=== PATIENT | male | born 1975 | race Caucasian/White ===

== ENCOUNTER 2017-05-15 21:06 | Emergency (ER) | payer MEDICAID ==
[~2017-05-15] VITALS: Ht 172.7 cm; Wt 61.0 kg
[2017-05-16] MEDS ORDERED: PENICILLIN G BENZATHINE 1,200,000 UNITS/2ML SYR IM ONE (03:15)
[2017-05-16 04:55] VITALS: BP 108/73
== END 2017-05-16 05:48 | disposition home or self-care (01) ==
LOC: ER 21:06
DX: J02.9 Acute pharyngitis, unspecified (principal); I11.9 Hypertensive heart disease without heart failure; F17.210 Nicotine dependence, cigarettes, uncomplicated; G43.909 Migraine, unspecified, not intractable, without status migrainosus
CPT/HCPCS: 96372; 99283; J0561; Z7610

== ENCOUNTER 2018-12-14 22:16 | Emergency (ER) | payer MEDICAID ==
[~2018-12-14] VITALS: Ht 172.7 cm; Wt 89.0 kg
[2018-12-15 01:46] LABS: BASOPHILS % 0.5 % (0.0-2.0); HEMATOCRIT. 44.9 % (42.0-52.0); MEAN CORPUSCULAR HEMOGLOBIN 30.2 pg (28.0-32.0); MEAN CORPUSCULAR VOLUME 90.3 fL (80.0-94.0); MEAN PLATELET VOLUME 7.9 fl (7.4-10.4); MONOCYTES % 6.7 % (2.0-8.0); NEUTROPHILS % 50.8 % (40.0-76.0); PLATELET 228 x1000/uL (130-400); RED BLOOD CELL COUNT 4.97 mill/uL (4.7-6.1); RED CELL DISTRIBUTION WIDTH 13.4 % (11.6-14.6)
[2018-12-15 01:52] LABS: CHLORIDE 106 mEq/L (98-107)
[2018-12-15 04:11] VITALS: BP 105/57
== END 2018-12-15 04:48 | disposition home or self-care (01) ==
LOC: ER 22:16
DX: I10 Essential (primary) hypertension (principal); R07.89 Other chest pain; I49.9 Cardiac arrhythmia, unspecified
CPT/HCPCS: 36415; 71045; 83880; 84484; 93005; 99284

== ENCOUNTER 2019-11-11 08:50 | Emergency (ER) | payer MEDICAID ==
[~2019-11-11] VITALS: Ht 175.3 cm; Wt 86.0 kg
[2019-11-11] MEDS ORDERED: ACETAMINOPHEN 500MG TABLET PO ONE (11:00)
[2019-11-11 11:10] LABS: BASOPHILS % 0.5 % (0.0-2.0); EOSINOPHILS % 0.1 % (0.0-5.0); HEMATOCRIT. 48.2 % (42.0-52.0); HEMOGLOBIN. 16.2 g/dL (14.0-18.0); LYMPHOCYTES % 17.6 % (20.0-50.0); MEAN CORPUSCULAR HEMOGLOBIN 30.2 pg (28.0-32.0); MEAN PLATELET VOLUME 7.9 fl (7.4-10.4); MONOCYTES % 10.3 % (2.0-8.0); NEUTROPHILS % 71.5 % (40.0-76.0); PLATELET 198 x1000/uL (130-400); RED BLOOD CELL COUNT 5.36 mill/uL (4.7-6.1); RED CELL DISTRIBUTION WIDTH 12.6 % (11.6-14.6)
[2019-11-11 11:17] LABS: CHLORIDE 104 mEq/L (98-107)
[2019-11-11 12:56] VITALS: BP 129/75
== END 2019-11-11 13:40 | disposition home or self-care (01) ==
LOC: ER 08:50
DX: B34.9 Viral infection, unspecified (principal); R07.89 Other chest pain; I48.91 Unspecified atrial fibrillation; I10 Essential (primary) hypertension; I49.9 Cardiac arrhythmia, unspecified; Z86.73 Personal history of transient ischemic attack (TIA), and cerebral infarction without residual deficits
CPT/HCPCS: 36415; 71045; 80053; 83880; 84484; 85025; 87804; 93005; 99284

== ENCOUNTER 2020-03-12 23:58 | Emergency (ER) | payer MEDICAID ==
[~2020-03-12] VITALS: Ht 172.7 cm; Wt 88.0 kg
[2020-03-13 01:48] LABS: BASOPHILS % 0.4 % (0.0-2.0); EOSINOPHILS % 1.8 % (0.0-5.0); HEMATOCRIT. 50.3 % (42.0-52.0); HEMOGLOBIN. 17.4 g/dL (14.0-18.0); LYMPHOCYTES % 32.7 % (20.0-50.0); MEAN CORPUSCULAR HEMOGLOBIN 31.6 pg (28.0-32.0); MEAN CORPUSCULAR VOLUME 91.1 fL (80.0-94.0); MEAN PLATELET VOLUME 7.7 fl (7.4-10.4); MONOCYTES % 7.6 % (2.0-8.0); NEUTROPHILS % 57.5 % (40.0-76.0); PLATELET 245 x1000/uL (130-400); RED BLOOD CELL COUNT 5.52 mill/uL (4.7-6.1); RED CELL DISTRIBUTION WIDTH 13.2 % (11.6-14.6)
[2020-03-13 01:55] LABS: CHLORIDE 102 mEq/L (98-107)
[2020-03-13 06:32] VITALS: BP 138/78
== END 2020-03-13 06:39 | disposition home or self-care (01) ==
LOC: ER 23:58
DX: R00.2 Palpitations (principal); I10 Essential (primary) hypertension; Z86.73 Personal history of transient ischemic attack (TIA), and cerebral infarction without residual deficits
CPT/HCPCS: 36415; 71045; 80053; 83880; 84484; 85025; 93005; 99285

== ENCOUNTER 2020-05-27 08:25 | Inpatient (IN) | payer MEDICAID, OTHER ==
[~2020-05-27] VITALS: Ht 175.3 cm; Wt 85.7 kg
[2020-05-27] MEDS ORDERED: ASPIRIN 81MG TABLET PO ONE (10:00)
[2020-05-27 10:23] LABS: CHLORIDE 101 mEq/L (98-107)
[2020-05-27 10:25] LABS: BASOPHILS % 0.5 % (0.0-2.0); EOSINOPHILS % 2.5 % (0.0-5.0); HEMATOCRIT. 49.7 % (42.0-52.0); HEMOGLOBIN. 16.6 g/dL (14.0-18.0); LYMPHOCYTES % 37.2 % (20.0-50.0); MEAN CORPUSCULAR HEMOGLOBIN 30.3 pg (28.0-32.0); MEAN CORPUSCULAR VOLUME 90.5 fL (80.0-94.0); MEAN PLATELET VOLUME 8.6 fl (7.4-10.4); MONOCYTES % 8.1 % (2.0-8.0); NEUTROPHILS % 51.7 % (40.0-76.0); PLATELET 251 x1000/uL (130-400); RED BLOOD CELL COUNT 5.49 mill/uL (4.7-6.1); RED CELL DISTRIBUTION WIDTH 12.8 % (11.6-14.6)
[2020-05-27] MEDS ORDERED: POTASSIUM CHLORIDE 20MEQ TABLET SR PO NR (12:30)
[2020-05-27] MEDS ORDERED: ACETAMINOPHEN 325MG TABLET PO PRN (12:30)
[2020-05-27] MEDS ORDERED: ONDANSETRON HCL 4MG/2ML INJ IV PRN (12:30)
[2020-05-27] MEDS ORDERED: HYDRALAZINE 20MG/ML VIAL IV PRN (12:30)
[2020-05-27] MEDS ORDERED: RIVAROXABAN 20 MG TABLET PO SCH (17:00)
[2020-05-27] MEDS ORDERED: REGADENOSON 0.4 MG/5 ML IV NR (17:30)
[2020-05-27 17:40] VITALS: BP 114/73
[2020-05-27 18:00] VITALS: BP 117/68
[2020-05-27 19:43] LABS: CLARITY URINE CLEAR (CLEAR); COLOR URINE YELLOW (YELLOW); KETONES URINE 1+ (NEGATIVE); LEUKOCYTE ESTERASE URINE NEGATIVE (NEGATIVE); NITRITE URINE NEGATIVE (NEGATIVE); OCCULT BLOOD URINE NEGATIVE (NEGATIVE); PROTEIN URINE NEGATIVE (NEGATIVE); SPECIFIC GRAVITY URINE 1.014 (1.005-1.030)
[2020-05-27 20:00] VITALS: BP 114/66
[2020-05-27 20:07] LABS: *AMPHETAMINES SCREEN URINE NEGATIVE (NEGATIVE); *BARBITURATES SCREEN URINE NEGATIVE (NEGATIVE)
[2020-05-27 20:09] LABS: *BENZODIAZEPINES SCREEN URINE NEGATIVE (NEGATIVE); *COCAINE SCREEN URINE NEGATIVE (NEGATIVE); CANNABINOID URINE SCREEN NEGATIVE (NEGATIVE); METHADONE URINE SCREEN NEGATIVE (NEGATIVE); OPIATES URINE SCREEN NEGATIVE (NEGATIVE); PHENCYCLIDINE URINE SCREEN NEGATIVE (NEGATIVE)
[2020-05-27 21:00] VITALS: BP 118/69
[2020-05-27] MEDS ORDERED: TRAZODONE HCL 50MG TABLET PO PRN (21:00)
[2020-05-27] MEDS ORDERED: HEPARIN 5000 UNITS/ML VIAL SUBCUT SCH (21:00)
[2020-05-27 22:00] VITALS: BP 117/60
[2020-05-27 23:00] VITALS: BP 105/60
[2020-05-28] VITALS (14 sets, daily range): BP systolic 87–116; BP diastolic 54–75
[2020-05-28 06:47] LABS: CHLORIDE 106 mEq/L (98-107)
[2020-05-28 06:48] LABS: BASOPHILS % 0.5 % (0.0-2.0); EOSINOPHILS % 4.6 % (0.0-5.0); HEMATOCRIT. 49.4 % (42.0-52.0); HEMOGLOBIN. 16.7 g/dL (14.0-18.0); LYMPHOCYTES % 40.6 % (20.0-50.0); MEAN CORPUSCULAR HEMOGLOBIN 30.7 pg (28.0-32.0); MEAN CORPUSCULAR VOLUME 90.6 fL (80.0-94.0); MEAN PLATELET VOLUME 8.3 fl (7.4-10.4); MONOCYTES % 7.1 % (2.0-8.0); NEUTROPHILS % 47.2 % (40.0-76.0); PLATELET 223 x1000/uL (130-400); RED BLOOD CELL COUNT 5.45 mill/uL (4.7-6.1); RED CELL DISTRIBUTION WIDTH 12.8 % (11.6-14.6)
[2020-05-28 06:57] LABS: LDL CHOLESTEROL 113 mg/dL (5-100)
[2020-05-28 06:58] LABS: T4 FREE 1.36 ng/dL (0.76-1.46)
[2020-05-28 06:59] LABS: HDL CHOLESTEROL 40 mg/dL (40-59)
[2020-05-28] MEDS ORDERED: LOSA50TA41 PO (07:25)
[2020-05-28] MEDS ORDERED: CHLO25TA2 PO (07:25)
[2020-05-28] MEDS ORDERED: RIVA20TA PO (07:25)
[2020-05-28] MEDS ORDERED: REGADENOSON 0.4 MG/5 ML IV ONE (09:45)
[2020-05-28] MEDS ORDERED: CARVEDILOL 3.125 MG TABLET PO SCH (13:15)
[2020-05-28] MEDS: DILTIAZEM HCL 30MG TABLET PO SCH ×2 (13:49→18:58)
[2020-05-28] MEDS ORDERED: RIVAROXABAN 20 MG TABLET PO SCH (17:20)
[2020-05-29] VITALS (12 sets, daily range): BP systolic 93–122; BP diastolic 61–81
[2020-05-29] MEDS: DILTIAZEM HCL 30MG TABLET PO SCH ×3 (06:00→11:59)
[2020-05-29 06:56] LABS: CHLORIDE 106 mEq/L (98-107)
[2020-05-29 07:23] LABS: BASOPHILS % 0.7 % (0.0-2.0); EOSINOPHILS % 3.9 % (0.0-5.0); HEMATOCRIT. 46.2 % (42.0-52.0); HEMOGLOBIN. 15.6 g/dL (14.0-18.0); LYMPHOCYTES % 44.2 % (20.0-50.0); MEAN CORPUSCULAR HEMOGLOBIN 30.6 pg (28.0-32.0); MEAN CORPUSCULAR VOLUME 90.9 fL (80.0-94.0); MEAN PLATELET VOLUME 8.4 fl (7.4-10.4); MONOCYTES % 6.8 % (2.0-8.0); NEUTROPHILS % 44.4 % (40.0-76.0); PLATELET 218 x1000/uL (130-400); RED BLOOD CELL COUNT 5.09 mill/uL (4.7-6.1); RED CELL DISTRIBUTION WIDTH 12.9 % (11.6-14.6)
[2020-05-29] MEDS ORDERED: POTASSIUM CHLORIDE 20MEQ TABLET SR PO NR (11:45)
[2020-05-30] VITALS (11 sets, daily range): BP systolic 96–134; BP diastolic 60–76
[2020-05-30 06:20] LABS: BASOPHILS % 0.6 % (0.0-2.0); HEMATOCRIT. 44.8 % (42.0-52.0); LYMPHOCYTES % 46.9 % (20.0-50.0); MEAN CORPUSCULAR HEMOGLOBIN 30.6 pg (28.0-32.0); MEAN CORPUSCULAR VOLUME 91.2 fL (80.0-94.0); MEAN PLATELET VOLUME 8.5 fl (7.4-10.4); MONOCYTES % 6.8 % (2.0-8.0); NEUTROPHILS % 41.7 % (40.0-76.0); PLATELET 199 x1000/uL (130-400); RED BLOOD CELL COUNT 4.91 mill/uL (4.7-6.1); RED CELL DISTRIBUTION WIDTH 12.8 % (11.6-14.6)
[2020-05-30 06:30] LABS: CHLORIDE 106 mEq/L (98-107)
[2020-05-30] MEDS ORDERED: ENOXAPARIN 80MG/0.8ML SYR SUBCUT NR (12:00)
[2020-05-30] MEDS ORDERED: POTASSIUM CHLORIDE 20MEQ TABLET SR PO NR (13:15)
[2020-05-31] VITALS (10 sets, daily range): BP systolic 96–113; BP diastolic 52–76
[2020-05-31 09:03] LABS: BASOPHILS % 0.5 % (0.0-2.0); EOSINOPHILS % 2.9 % (0.0-5.0); HEMATOCRIT. 46.1 % (42.0-52.0); HEMOGLOBIN. 15.5 g/dL (14.0-18.0); LYMPHOCYTES % 41.2 % (20.0-50.0); MEAN CORPUSCULAR HEMOGLOBIN 30.5 pg (28.0-32.0); MEAN CORPUSCULAR VOLUME 90.8 fL (80.0-94.0); MONOCYTES % 7.4 % (2.0-8.0); PLATELET 193 x1000/uL (130-400); RED BLOOD CELL COUNT 5.07 mill/uL (4.7-6.1); RED CELL DISTRIBUTION WIDTH 12.5 % (11.6-14.6)
[2020-05-31 09:09] LABS: CHLORIDE 109 mEq/L (98-107)
[2020-05-31] MEDS ORDERED: SODIUM CHLORIDE 0.9% 1,000 ML IV ONE (10:00)
[2020-05-31] MEDS ORDERED: LIDOCAINE HCL 1% 20ML VIAL (Pyxis) INJ ONE ×2 (10:13→11:26)
[2020-05-31] MEDS ORDERED: ONDANSETRON HCL 4MG/2ML INJ IV PRN (10:15)
[2020-05-31] MEDS ORDERED: MORPHINE SULFATE 2 MG/ML CPJ (NOT FOR IM USE) IV PRN (10:15)
[2020-05-31] MEDS ORDERED: MEPERIDINE HCL/PF 25MG/ML CPJ IV PRN ×2 (10:15)
[2020-05-31] MEDS ORDERED: HYDROMORPHONE HCL/PF 2MG/ML CPJ IV PRN (10:15)
[2020-05-31] MEDS ORDERED: IOHEXOL-300 50 ML BOTTLE IV ONE (10:34)
[2020-05-31] MEDS ORDERED: MIDAZOLAM HCL 2 MG/2 ML VIAL ONE ×2 (10:41→10:47)
[2020-05-31] MEDS ORDERED: FENTANYL CITRATE/PF 50MCG/ML 2ML VIAL ONE (10:41)
[2020-05-31] MEDS ORDERED: PROPOFOL 200MG/20ML VIAL IV ONE (10:41)
[2020-05-31] MEDS ORDERED: METOCLOPRAMIDE HCL 10MG/2ML VIAL ONE (10:42)
[2020-05-31] MEDS ORDERED: ONDANSETRON HCL 4MG/2ML INJ ONE (10:42)
[2020-05-31] MEDS ORDERED: SUCCINYLCHOLINE CHLORIDE 200MG/10ML IV ONE (10:42)
[2020-05-31] MEDS ORDERED: GLYCOPYRROLATE 0.2 MG/ML 2ML VIAL ONE (10:42)
[2020-05-31] MEDS ORDERED: PROPOFOL 10MG/ML 100ML 100 ML IV ONE (10:44)
[2020-05-31] MEDS ORDERED: HEPARIN 5000 UNITS/ML VIAL ONE (11:18)
[2020-05-31] MEDS ORDERED: THROMBIN (BOVINE) 5000 UNITS/VIAL TOP ONE (11:18)
[2020-05-31] MEDS ORDERED: HEPARIN SODIUM 1,000 UNIT/1ML VIAL IV ONE (11:19)
[2020-05-31] MEDS ORDERED: SKIN ADHESIVE 0.7 GM EA TOP ONE (11:37)
[2020-05-31] MEDS ORDERED: GENTAMICIN SULF 40MG/ML 2ML VIAL ONE (11:53)
[2020-05-31] MEDS ORDERED: HYDROCODONE/ACETAMINOPHEN 5/325MG TABLET PO PRN (12:15)
[2020-06-01] VITALS (7 sets, daily range): BP systolic 94–133; BP diastolic 59–80
[2020-06-01] MEDS: DILTIAZEM HCL 30MG TABLET PO SCH ×2 (00:14→06:00)
[2020-06-01 08:13] LABS: BASOPHILS % 1.1 % (0.0-2.0); EOSINOPHILS % 2.7 % (0.0-5.0); HEMATOCRIT. 44.5 % (42.0-52.0); LYMPHOCYTES % 27.6 % (20.0-50.0); MEAN CORPUSCULAR HEMOGLOBIN 30.9 pg (28.0-32.0); MEAN CORPUSCULAR VOLUME 91.5 fL (80.0-94.0); MEAN PLATELET VOLUME 8.4 fl (7.4-10.4); MONOCYTES % 5.6 % (2.0-8.0); PLATELET 192 x1000/uL (130-400); RED BLOOD CELL COUNT 4.86 mill/uL (4.7-6.1); RED CELL DISTRIBUTION WIDTH 12.5 % (11.6-14.6)
[2020-06-01 08:37] LABS: CHLORIDE 109 mEq/L (98-107)
== END 2020-06-01 12:10 | disposition home or self-care (01) | DRG 171 ==
LOC: ER 08:25 → EDBEDREQ 11:59 → ENRESERV 13:58 → 3WST 15:24
PROVIDERS: ADMIT Internal Medicine; ATTEND Internal Medicine
PROC: 0JH606Z Insertion of Pacemaker, Dual Chamber into Chest Subcutaneous Tissue and Fascia, Open Approach (ICD-10-PCS; principal; 2020-05-31)
PROC: 02H63JZ Insertion of Pacemaker Lead into Right Atrium, Percutaneous Approach (ICD-10-PCS; 2020-05-31)
PROC: 02HK3JZ Insertion of Pacemaker Lead into Right Ventricle, Percutaneous Approach (ICD-10-PCS; 2020-05-31)
PROC: B5171ZZ Fluoroscopy of Left Subclavian Vein using Low Osmolar Contrast (ICD-10-PCS; 2020-05-31)
DX: I48.19 Other persistent atrial fibrillation (principal); I11.0 Hypertensive heart disease with heart failure; E78.5 Hyperlipidemia, unspecified; I50.22 Chronic systolic (congestive) heart failure; I42.9 Cardiomyopathy, unspecified; I49.5 Sick sinus syndrome; E78.00 Pure hypercholesterolemia, unspecified; Z86.73 Personal history of transient ischemic attack (TIA), and cerebral infarction without residual deficits; Z79.01 Long term (current) use of anticoagulants; Z79.899 Other long term (current) drug therapy; Z95.0 Presence of cardiac pacemaker
CPT/HCPCS: 36415; 71045; 76000; 78452; 80053; 80061; 80305; 81003; 83036; 83735; 83880; 84439; 84443; 84484; 85025; 93005; 93017; 93306; 99285; A9500; C1785; J0330; J1580; J1644; J1650; J2250; J2405; J2704; J2765; J2785; J3010; J3490; Q9967

== ENCOUNTER 2021-07-27 19:29 | Inpatient (IN) | payer MEDICAID ==
[~2021-07-27] VITALS: Ht 172.7 cm; Wt 90.7 kg
[~2021-07-27 19:29] MED LIST: CHLO25TA2 PO; LOSA50TA41 PO; RIVA20TA PO
[2021-07-27] MEDS ORDERED: ASPIRIN 81MG TABLET PO ONE (23:30)
[2021-07-28 00:17] LABS: BASOPHILS % 0.3 % (0.0-2.0); HEMATOCRIT. 42.6 % (42.0-52.0); HEMOGLOBIN. 14.5 g/dL (14.0-18.0); LYMPHOCYTES % 38.3 % (20.0-50.0); MEAN CORPUSCULAR HEMOGLOBIN 30.7 pg (28.0-32.0); MEAN CORPUSCULAR VOLUME 90.2 fL (80.0-94.0); MEAN PLATELET VOLUME 7.4 fl (7.4-10.4); MONOCYTES % 7.8 % (2.0-8.0); NEUTROPHILS % 51.6 % (40.0-76.0); PLATELET 214 x1000/uL (130-400); RED BLOOD CELL COUNT 4.72 mill/uL (4.7-6.1); RED CELL DISTRIBUTION WIDTH 12.9 % (11.6-14.6)
[2021-07-28 00:23] LABS: CHLORIDE 108 mEq/L (98-107)
[2021-07-28 03:00] VITALS: BP 136/92
[2021-07-28] MEDS ORDERED: FLEC50TA2 PO (03:45)
[2021-07-28] MEDS ORDERED: DILT180C54 PO (03:45)
[2021-07-28] MEDS ORDERED: ACETAMINOPHEN 325MG TABLET PO PRN (06:30)
[2021-07-28] MEDS ORDERED: HYDROCODONE/ACETAMINOPHEN 5/325MG TABLET PO PRN (06:30)
[2021-07-28] MEDS ORDERED: HYDROMORPHONE HCL/PF 2MG/ML CPJ IV PRN (06:30)
[2021-07-28] MEDS ORDERED: ONDANSETRON HCL 4MG/2ML INJ IV PRN (06:30)
[2021-07-28] MEDS ORDERED: CLONIDINE 0.1MG TABLET PO PRN (06:30)
[2021-07-28] MEDS ORDERED: MAGNESIUM/ALUMINUM HYDROXIDE/SIMETHICONE 30ML UDC PO PRN (06:30)
[2021-07-28] MEDS ORDERED: NALOXONE HCL 0.4MG/ML VIAL IV PRN (07:00)
[2021-07-28] MEDS ORDERED: DOCUSATE SODIUM 100MG CAPSULE PO PRN (08:00)
[2021-07-28 08:07] VITALS: BP 114/81
[2021-07-28] MEDS: LOSARTAN POTASSIUM 50 MG TABLET PO SCH (09:14)
[2021-07-28] MEDS: FLECAINIDE 50MG TABLET PO SCH ×2 (09:15→18:20)
[2021-07-28] MEDS: CHLORTHALIDONE 25MG TABLET PO SCH (09:15)
[2021-07-28] MEDS: DILTIAZEM HCL 180MG CAPSULE CD 24HR PO SCH (09:15)
[2021-07-28 12:00] VITALS: BP 149/77
[2021-07-28] MEDS ORDERED: REGADENOSON 0.4 MG/5 ML IV ONE (13:45)
[2021-07-28 16:04] LABS: BASOPHILS % 0.4 % (0.0-2.0); EOSINOPHILS % 2.2 % (0.0-5.0); HEMATOCRIT. 47.4 % (42.0-52.0); HEMOGLOBIN. 15.9 g/dL (14.0-18.0); LYMPHOCYTES % 32.9 % (20.0-50.0); MEAN CORPUSCULAR HEMOGLOBIN 30.5 pg (28.0-32.0); MEAN CORPUSCULAR VOLUME 90.9 fL (80.0-94.0); MEAN PLATELET VOLUME 7.9 fl (7.4-10.4); MONOCYTES % 7.3 % (2.0-8.0); NEUTROPHILS % 57.2 % (40.0-76.0); PLATELET 260 x1000/uL (130-400); RED BLOOD CELL COUNT 5.21 mill/uL (4.7-6.1); RED CELL DISTRIBUTION WIDTH 13.1 % (11.6-14.6)
[2021-07-28 16:10] VITALS: BP 146/78
[2021-07-28 16:23] LABS: CHLORIDE 107 mEq/L (98-107)
[2021-07-28] MEDS ORDERED: RIVAROXABAN 20 MG TABLET PO SCH (17:00)
[2021-07-28 20:40] VITALS: BP 112/71
[2021-07-29] VITALS: BP 109/70
[2021-07-29 04:00] VITALS: BP 105/71
[2021-07-29 06:09] LABS: BASOPHILS % 0.4 % (0.0-2.0); EOSINOPHILS % 3.5 % (0.0-5.0); HEMATOCRIT. 47.4 % (42.0-52.0); HEMOGLOBIN. 15.7 g/dL (14.0-18.0); LYMPHOCYTES % 36.4 % (20.0-50.0); MEAN CORPUSCULAR HEMOGLOBIN 30.3 pg (28.0-32.0); MEAN CORPUSCULAR VOLUME 91.7 fL (80.0-94.0); MEAN PLATELET VOLUME 7.8 fl (7.4-10.4); MONOCYTES % 8.8 % (2.0-8.0); NEUTROPHILS % 50.9 % (40.0-76.0); PLATELET 230 x1000/uL (130-400); RED BLOOD CELL COUNT 5.17 mill/uL (4.7-6.1); RED CELL DISTRIBUTION WIDTH 12.8 % (11.6-14.6)
[2021-07-29 06:10] LABS: CHLORIDE 106 mEq/L (98-107)
[2021-07-29 06:21] LABS: LDL CHOLESTEROL 111 mg/dL (5-100)
[2021-07-29 06:22] LABS: HDL CHOLESTEROL 46 mg/dL (40-59); T4 FREE 0.97 ng/dL (0.76-1.46)
[2021-07-29 07:44] LABS: CLARITY URINE CLEAR (CLEAR); COLOR URINE YELLOW (YELLOW); KETONES URINE NEGATIVE (NEGATIVE); LEUKOCYTE ESTERASE URINE NEGATIVE (NEGATIVE); NITRITE URINE NEGATIVE (NEGATIVE); OCCULT BLOOD URINE NEGATIVE (NEGATIVE); PH URINE 6.5 (4.5-8.0); PROTEIN URINE NEGATIVE (NEGATIVE); SPECIFIC GRAVITY URINE 1.026 (1.005-1.030)
[2021-07-29 07:48] VITALS: BP 103/69
[2021-07-29 07:59] LABS: *AMPHETAMINES SCREEN URINE NEGATIVE (NEGATIVE); *BARBITURATES SCREEN URINE NEGATIVE (NEGATIVE); *BENZODIAZEPINES SCREEN URINE NEGATIVE (NEGATIVE); *COCAINE SCREEN URINE NEGATIVE (NEGATIVE); METHADONE URINE SCREEN NEGATIVE (NEGATIVE); OPIATES URINE SCREEN NEGATIVE (NEGATIVE); PHENCYCLIDINE URINE SCREEN NEGATIVE (NEGATIVE)
[2021-07-29 08:00] LABS: CANNABINOID URINE SCREEN NEGATIVE (NEGATIVE)
[2021-07-29] MEDS: LOSARTAN POTASSIUM 50 MG TABLET PO SCH (08:58)
[2021-07-29] MEDS: CHLORTHALIDONE 25MG TABLET PO SCH (08:58)
[2021-07-29] MEDS: FLECAINIDE 50MG TABLET PO SCH ×2 (08:59→16:12)
[2021-07-29] MEDS: DILTIAZEM HCL 180MG CAPSULE CD 24HR PO SCH (09:00)
[2021-07-29 11:14] VITALS: BP 111/78
[2021-07-29] MEDS ORDERED: REGADENOSON 0.4 MG/5 ML IV ONE (11:18)
[2021-07-29 15:11] VITALS: BP 125/86
[2021-07-29 20:00] VITALS: BP 117/70
[2021-07-29] MEDS ORDERED: INFLUENZA VACCINE 05/PF 0.5 ML SYRINGE IM ONE (21:00)
[2021-07-30 00:36] VITALS: BP 109/69
[2021-07-30 04:00] VITALS: BP 113/73
[2021-07-30 08:00] VITALS: BP 99/68
[2021-07-30] MEDS: DILTIAZEM HCL 180MG CAPSULE CD 24HR PO SCH (08:50)
[2021-07-30] MEDS: CHLORTHALIDONE 25MG TABLET PO SCH (08:52)
[2021-07-30] MEDS: FLECAINIDE 50MG TABLET PO SCH (08:53)
[2021-07-30] MEDS: LOSARTAN POTASSIUM 50 MG TABLET PO SCH (08:53)
[2021-07-30 11:40] VITALS: BP 99/68
[2021-07-30 12:00] VITALS: BP 109/70
== END 2021-07-30 14:21 | disposition home or self-care (01) | DRG 203 ==
LOC: ER 19:29 → 6WST 07-28 00:58 → EDBEDREQ 07-28 00:59 → EDBEDREQTM 07-28 00:59 → EDBEDREQDT 07-28 00:59 → ENRESERV 07-28 02:37
PROVIDERS: ADMIT Hospitalist; ATTEND Hospitalist
DX: M94.0 Chondrocostal junction syndrome [Tietze] (principal); D68.59 Other primary thrombophilia; I49.5 Sick sinus syndrome; I50.22 Chronic systolic (congestive) heart failure; I11.0 Hypertensive heart disease with heart failure; R20.0 Anesthesia of skin; Z20.822 Contact with and (suspected) exposure to COVID-19; E78.00 Pure hypercholesterolemia, unspecified; I48.0 Paroxysmal atrial fibrillation; Z95.0 Presence of cardiac pacemaker; Z86.73 Personal history of transient ischemic attack (TIA), and cerebral infarction without residual deficits; Z82.49 Family history of ischemic heart disease and other diseases of the circulatory system; Z79.01 Long term (current) use of anticoagulants; Z79.899 Other long term (current) drug therapy; E83.41 Hypermagnesemia
CPT/HCPCS: 36415; 71045; 78452; 80048; 80053; 80061; 80305; 81003; 83036; 83735; 83880; 84439; 84443; 84481; 84484; 85025; 87426; 90686; 93005; 93017; 93306; 99285; A9500; J2785

== ENCOUNTER 2022-06-27 23:50 | Emergency (ER) | payer MEDICAID ==
[~2022-06-27] VITALS: Ht 180.3 cm; Wt 91.8 kg
[~2022-06-27 23:50] MED LIST changes: +DILT180C54 PO; +FLEC50TA2 PO
[2022-06-28 06:07] LABS: BASOPHILS % 0.5 % (0.0-2.0); EOSINOPHILS % 5.1 % (0.0-5.0); HEMATOCRIT. 43.8 % (42.0-52.0); HEMOGLOBIN. 14.8 g/dL (14.0-18.0); LYMPHOCYTES % 37.2 % (20.0-50.0); MEAN CORPUSCULAR HEMOGLOBIN 30.7 pg (28.0-32.0); MEAN CORPUSCULAR VOLUME 90.6 fL (80.0-94.0); MEAN PLATELET VOLUME 7.3 fl (7.4-10.4); MONOCYTES % 9.1 % (2.0-8.0); NEUTROPHILS % 48.1 % (40.0-76.0); PLATELET 204 x1000/uL (130-400); RED BLOOD CELL COUNT 4.83 mill/uL (4.7-6.1)
[2022-06-28 06:13] LABS: CHLORIDE 105 mEq/L (98-107)
[2022-06-28 06:46] LABS: CLARITY URINE CLEAR (CLEAR); COLOR URINE YELLOW (YELLOW); KETONES URINE NEGATIVE (NEGATIVE); LEUKOCYTE ESTERASE URINE NEGATIVE (NEGATIVE); NITRITE URINE NEGATIVE (NEGATIVE); OCCULT BLOOD URINE TRACE (NEGATIVE); PROTEIN URINE NEGATIVE (NEGATIVE); SPECIFIC GRAVITY URINE 1.011 (1.005-1.030); UROBILINOGEN URINE 0.2 E.U./dL (0.2-1.0)
[2022-06-28 08:35] VITALS: BP 133/71
== END 2022-06-28 08:40 | disposition home or self-care (01) ==
LOC: ER 23:50
DX: I10 Essential (primary) hypertension (principal); I25.10 Atherosclerotic heart disease of native coronary artery without angina pectoris; E78.5 Hyperlipidemia, unspecified; Z86.73 Personal history of transient ischemic attack (TIA), and cerebral infarction without residual deficits; Z95.0 Presence of cardiac pacemaker
CPT/HCPCS: 36415; 71045; 80053; 81003; 83880; 84484; 85025; 93005; 99285

== ENCOUNTER 2023-12-17 03:39 | Emergency (ER) | payer MEDICAID ==
[~2023-12-17] VITALS: Ht 177.8 cm; Wt 88.0 kg
[2023-12-17 04:12] VITALS: TEMP 98.9
[2023-12-17 04:53] LABS: BASOPHILS % 0.5 % (0.0-2.0); EOSINOPHILS % 6.9 % (0.0-5.0); HEMATOCRIT. 45.5 % (42.0-52.0); HEMOGLOBIN. 15.1 g/dL (14.0-18.0); LYMPHOCYTES % 33.6 % (20.0-50.0); MEAN CORPUSCULAR HEMOGLOBIN 30.7 pg (28.0-32.0); MEAN CORPUSCULAR HGB CONC 33.2 g/dL (31.0-37.0); MEAN CORPUSCULAR VOLUME 92.4 fL (80.0-94.0); MEAN PLATELET VOLUME 7.5 fl (7.4-10.4); MONOCYTES % 11.6 % (2.0-8.0); NEUTROPHILS % 47.4 % (40.0-76.0); PLATELET 220 x1000/uL (130-400); RED BLOOD CELL COUNT 4.92 mill/uL (4.7-6.1); RED CELL DISTRIBUTION WIDTH 13.3 % (11.6-14.6); WHITE BLOOD COUNT 8.2 x1000/uL (4.5-11.0)
[2023-12-17 05:13] LABS: ALANINE AMINOTRANSFERASE 50 IU/L (10-49); ALBUMIN 4.6 g/dL (3.2-4.8); ASPARTATE AMINOTRANSFERASE 22 IU/L (<34); BILIRUBIN TOTAL 0.4 mg/dL (0.1-1.0); CALCIUM 9.1 mg/dL (8.7-10.4); CARBON DIOXIDE 26 mEq/L (21-32); CHLORIDE 108 mEq/L (98-107); CREATININE 0.9 mg/dL (0.6-1.3); GLUCOSE 95 mg/dL (70-105); POTASSIUM 3.6 mEq/L (3.5-5.1); PROTEIN TOTAL 7.3 g/dL (6.0-8.3); SODIUM 139 mEq/L (136-145); UREA NITROGEN BLOOD 12 mg/dL (9-23)
[2023-12-17 05:14] LABS: TROPONIN I HIGH SENSITIVITY < 4 ng/L (3.0-53)
[2023-12-17 05:32] LABS: PARTIAL THROMBOPLASTIN TIME 27.2 sec (23.4-31.0); PROTHROMBIN TIME 10.7 sec (9.6-11.0)
[2023-12-17] MEDS: ALBUTEROL (0.083%) 2.5MG/3ML NEB HHN STA (06:30)
[2023-12-17 06:32] VITALS: PULSE 83; RESP 22; O2SAT 95
[2023-12-17 06:55] VITALS: BP 118/78; PULSE 70; RESP 20
[2023-12-17] MEDS ORDERED: ALBU6.7H15 INH (08:00)
== END 2023-12-17 09:33 | disposition home or self-care (01) ==
LOC: ER 03:39
DX: J40 Bronchitis, not specified as acute or chronic (principal); I50.9 Heart failure, unspecified; Z98.890 Other specified postprocedural states
CPT/HCPCS: 80053; 85025; 85610; 85730; 84484; 36415; 71045; 94640; 93005; 99285; Z7610 ×3

== ENCOUNTER 2025-01-23 04:22 | Emergency (ER) | payer MEDICAID ==
[~2025-01-23] VITALS: Ht 180.3 cm; Wt 99.0 kg
[~2025-01-23 04:22] MED LIST changes: +ALBU6.7H15 INH
[2025-01-23 04:26] VITALS: O2SAT 97
[2025-01-23 04:52] LABS: BASOPHILS % 0.5 % (0.0-2.0); EOSINOPHILS % 3.8 % (0.0-5.0); HEMATOCRIT. 46.2 % (42.0-52.0); HEMOGLOBIN. 15.1 g/dL (14.0-18.0); LYMPHOCYTES % 40.6 % (20.0-50.0); MEAN CORPUSCULAR HEMOGLOBIN 29.7 pg (28.0-32.0); MEAN CORPUSCULAR HGB CONC 32.7 g/dL (31.0-37.0); MEAN CORPUSCULAR VOLUME 91.1 fL (80.0-94.0); MEAN PLATELET VOLUME 7.3 fl (7.4-10.4); MONOCYTES % 8.8 % (2.0-8.0); NEUTROPHILS % 46.3 % (40.0-76.0); PLATELET 219 x1000/uL (130-400); RED BLOOD CELL COUNT 5.07 mill/uL (4.7-6.1); RED CELL DISTRIBUTION WIDTH 13.1 % (11.6-14.6); WHITE BLOOD COUNT 7.4 x1000/uL (4.5-11.0)
[2025-01-23 04:59] LABS: CHLORIDE 106 mEq/L (98-107); POTASSIUM 3.6 mEq/L (3.5-5.1); SODIUM 139 mEq/L (136-145)
[2025-01-23 05:00] LABS: CALCIUM 9.5 mg/dL (8.7-10.4); CARBON DIOXIDE 29 mEq/L (21-32)
[2025-01-23 05:05] LABS: CREATININE 0.9 mg/dL (0.6-1.3); GLUCOSE 107 mg/dL (70-105); UREA NITROGEN BLOOD 11 mg/dL (9-23)
[2025-01-23 05:08] LABS: TROPONIN I HIGH SENSITIVITY < 4 ng/L (3.0-53)
[2025-01-23] MEDS: METOCLOPRAMIDE HCL 10MG/2ML VIAL IV ONE (06:12)
[2025-01-23] MEDS: KETOROLAC 30MG/ML VIAL IV STA (06:13)
[2025-01-23] MEDS: SODIUM CHLORIDE 0.9% 1,000 ML IV ONE (06:14)
[2025-01-23] MEDS ORDERED: IBUP-2028 PO (08:07)
[2025-01-23 08:32] VITALS: BP 108/72; PULSE 70; RESP 16; TEMP 36.9; O2SAT 95
== END 2025-01-23 08:45 | disposition home or self-care (01) ==
LOC: ER 04:22
DX: R51.9 Headache, unspecified (principal); Z95.0 Presence of cardiac pacemaker; Z79.899 Other long term (current) drug therapy; Z79.1 Long term (current) use of non-steroidal anti-inflammatories (NSAID); Z79.01 Long term (current) use of anticoagulants; Z98.890 Other specified postprocedural states
CPT/HCPCS: 99285; 96374; 96361; 96375; 80048; 85025; 84484; 36415; J1885; J2765; J7030